=== PATIENT | female | born 1960 | race African-American/Black ===

== ENCOUNTER 2017-12-10 12:52 | Emergency (ER) | payer OTHER ==
[~2017-12-10] VITALS: Ht 154.9 cm; Wt 79.0 kg
[2017-12-10] MEDS ORDERED: ACETAMINOPHEN 500MG TABLET PO ONE (14:00)
[2017-12-10] MEDS ORDERED: IBUPROFEN 400MG TABLET PO ONE (14:00)
[2017-12-10 14:11] VITALS: BP 162/96
== END 2017-12-10 15:43 | disposition home or self-care (01) ==
LOC: ER 13:16
DX: S16.1XXA Strain of muscle, fascia and tendon at neck level, initial encounter (principal); S80.01XA Contusion of right knee, initial encounter; F17.200 Nicotine dependence, unspecified, uncomplicated; W01.0XXA Fall on same level from slipping, tripping and stumbling without subsequent striking against object, initial encounter; Y93.89 Activity, other specified; Y92.89 Other specified places as the place of occurrence of the external cause; Y99.8 Other external cause status
CPT/HCPCS: 29125; 72125; 73110; 73130; 73562; 99284